=== PATIENT | female | born 1935 | race Caucasian/White ===

== ENCOUNTER 2017-08-13 14:30 | Inpatient (IN) | payer MEDICARE, OTHER ==
[~2017-08-13] VITALS: Ht 157.5 cm; Wt 79.7 kg
[~2017-08-13 14:30] MED LIST: AMLO2.5T2 PO; ESCI20TA29 PO; GABA-338 PO; LANS30CA37 PO; PRED2.5T4 PO
[2017-08-13 15:59] LABS: BASOPHILS % (AUTO) 0.3 % (0-1); EOSINOPHILS # (AUTO) 0.3 X10'3 (0-0.9); LYMPHOCYTES # (AUTO) 0.9 X10'3 (1.1-4.8); LYMPHOCYTES % (AUTO) 12.6 % (21-51); MEAN CORPUSCULAR HEMOGLOBIN 30.1 PG (27.0-31.0); MEAN CORPUSCULAR HGB CONC 33.7 % (33.0-36.5); MEAN CORPUSCULAR VOLUME 89.4 FL (78-98); MEAN PLATELET VOLUME 7.6 FL (7.4-10.4); MONOCYTES # (AUTO) 0.5 X10'3 (0-0.9); MONOCYTES % (AUTO) 7.3 % (2-12); NEUTROPHILS # (AUTO) 5.6 X10'3 (1.8-7.7); NEUTROPHILS % (AUTO) 75.8 % (42-75); PRE OP HEMOGLOBIN 14.5 g/dL (12.0-16.0); PRE OP PLATELET COUNT 274 X10'3 (140-440); RED BLOOD COUNT 4.81 X10'6 (4.20-5.60); RED CELL DISTRIBUTION WIDTH 14.1 % (11.5-14.5)
[2017-08-13] MEDS ORDERED: TERB250T4 (16:05)
[2017-08-13] MEDS ORDERED: FENT-91 TP (16:05)
[2017-08-13] MEDS ORDERED: OXYC10TA47 PO (16:05)
[2017-08-13] MEDS ORDERED: ONDA8TAB13 PO (16:05)
[2017-08-13] MEDS ORDERED: DIPH25CA83 PO (16:05)
[2017-08-13] MEDS ORDERED: MONT10TA24 PO (16:05)
[2017-08-13] MEDS ORDERED: PRAM0.5T12 PO (16:05)
[2017-08-13] MEDS ORDERED: MAGN500C16 PO (16:05)
[2017-08-13] MEDS ORDERED: LORA10TA7 PO (16:05)
[2017-08-13] MEDS ORDERED: HYDR-3972 PO (16:05)
[2017-08-13] MEDS ORDERED: FERR325T28 PO (16:05)
[2017-08-13] MEDS ORDERED: CHOL10002 PO (16:07)
[2017-08-13] MEDS ORDERED: ASCO500C15 PO (16:07)
[2017-08-13] MEDS ORDERED: LEVO75TA PO (16:14)
[2017-08-13 16:15] LABS: ALBUMIN 3.1 G/DL (3.4-5.0); ALBUMIN/GLOBULIN RATIO 0.8 (1.1-1.5); ALKALINE PHOSPHATASE 103 IU/L (46-116); BLOOD UREA NITROGEN 19 MG/DL (7-18); BUN/CREATININE RATIO 16.5 (6.6-38.0); CHLORIDE 100 MMOL/L (99-107); CREATININE 1.15 MG/DL (0.40-0.90); PRE OP ALT 26 U/L (30-65); PRE OP ANION GAP 5 (8-16); PRE OP AST 23 U/L (10-37); PRE OP BILIRUB, TOTAL 0.4 MG/DL (0.0-1.0); PRE OP GLUCOSE 106 MG/DL (70-104); PRE OP POTASSIUM 4.3 MMOL/L (3.4-5.1); PRE OP SODIUM 135 MMOL/L (135-145); TOTAL CARBON DIOXIDE 30.3 MMOL/L (24-32); TOTAL PROTEIN 7.2 G/DL (6.4-8.2); eGFR 45 ML/MIN
[2017-08-13 16:18] LABS: PRE OP INR 0.9 INR; PRE OP PROTIME 9.8 SECONDS (9.0-12.0)
[2017-08-20] MEDS ORDERED: LIDO35.4 TOP (13:12)
[2017-08-21] VITALS (28 sets, daily range): BP systolic 98–144; BP diastolic 47–89
[2017-08-21] MEDS ORDERED: ringers solution, lacted 1,000 ML IV SCH ×2 (05:00→08:42)
[2017-08-21] MEDS ORDERED: tranexamic acid inj. 1,000 MG in normal saline 100ml IV soln 90 ML IV ONE (05:30)
[2017-08-21] MEDS ORDERED: vancomycin inj 1,500 MG in normal saline 300ml IV soln IV ONE (05:30)
[2017-08-21] MEDS ORDERED: famotidine 20mg tablet PO ONE (05:30)
[2017-08-21] MEDS ORDERED: ceFAZolin inj. 2,000 MG in dextrose 5%-water 100 ML IV ONE (05:30)
[2017-08-21] MEDS ORDERED: LIDOcaine 1% (10mg/ml) 2ml vial ONE (05:54)
[2017-08-21] MEDS ORDERED: AMLO2.5T2 PO (06:12)
[2017-08-21] MEDS ORDERED: oxyCODONE IR 5mg (immed. release) tablet PO ONE (06:40)
[2017-08-21] MEDS ORDERED: ceFAZolin 1000mg inj ONE (06:43)
[2017-08-21] MEDS ORDERED: Thrombin (Bovine) 5,000 unit vial TP ONE ×2 (06:44→10:17)
[2017-08-21] MEDS ORDERED: BUPIVAcaine/PF 2.5 mg/ml (0.25%) 30ml vial ONE (06:44)
[2017-08-21] MEDS ORDERED: gelatin sponge, absorbable (Gelfoam 100) sponge TP ONE (06:44)
[2017-08-21] MEDS ORDERED: midazolam 2 mg/2 ml injection ONE (06:54)
[2017-08-21] MEDS ORDERED: fentaNYL /PF 50mcg/ml 5ml ampule ONE (06:56)
[2017-08-21] MEDS ORDERED: propofol inj 20 ML IV ONE (06:57)
[2017-08-21] MEDS ORDERED: LIDOcaine 2% (20mg/ml) 5ml vial ONE (06:57)
[2017-08-21] MEDS ORDERED: rocuronium 10mg/ml inj IV ONE (06:59)
[2017-08-21] MEDS ORDERED: methylPREDNISolone sod succ 125mg/2ml vial ONE (07:25)
[2017-08-21] MEDS ORDERED: sevoflurane 250ml liquid IH ONE (07:25)
[2017-08-21] MEDS ORDERED: ondansetron/PF 4mg/2ml inj IV PRN ×2 (08:45→12:50)
[2017-08-21] MEDS ORDERED: HYDROmorphone inj. 0.5 MG/0.5 ML DISP.SYRIN IV PRN (08:45)
[2017-08-21] MEDS ORDERED: proCHLORperazine 10 MG/2 ml inj IV PRN (08:45)
[2017-08-21] MEDS ORDERED: fentaNYL/PF 50MCG/1 ML 2ML syringe IV PRN (08:45)
[2017-08-21] MEDS ORDERED: hydrALAZINE 20mg/ml inj. IV PRN (08:45)
[2017-08-21] MEDS ORDERED: HYDROmorphone 1 mg/ml syringe ONE (09:04)
[2017-08-21] MEDS ORDERED: ePHEDrine 50MG/ML INJ. ONE (10:29)
[2017-08-21] MEDS ORDERED: fentaNYL/PF 50MCG/1 ML 2ML syringe ONE (11:27)
[2017-08-21 12:00] LABS: ISTAT CREATININE 1.1 mg/dL (0.6-1.1); ISTAT HGB 10.5 g/dl (12.0-16.0); ISTAT IONIZED CALCIUM 1.09 mmol/L (1.03-1.32); ISTAT K 5.9 mmol/L (3.5-5.1); POC BUN/CREATININE RATIO 19.1 (6.6-38.0)
[2017-08-21] MEDS: fentaNYL/PF 50MCG/1 ML 2ML syringe IV PRN ×2 (12:30→12:50)
[2017-08-21] MEDS ORDERED: potassium cl 20mEq in 1/2 NS 1,000 ML IV SCH (12:50)
[2017-08-21] MEDS ORDERED: HYDROcodone/acetaminophen 10/325mg tab PO PRN (12:50)
[2017-08-21] MEDS ORDERED: tranexamic acid inj. 800 MG in normal saline 100ml IV soln 92 ML IV ONE (14:00)
[2017-08-21] MEDS: HYDROcodone/acetaminophen 10/325mg tab PO PRN ×2 (15:20→19:35)
[2017-08-21] MEDS: ceFAZolin 1GM/D5W- ADD-VANTAGE 50 ML IV SCH (20:44)
[2017-08-21] MEDS: MORPHINE 2MG in 2ml NS syringe IV PRN (20:49)
[2017-08-21] MEDS ORDERED: gabapentin 300mg capsule PO SCH (21:00)
[2017-08-21] MEDS ORDERED: amLODIPine 2.5mg tablet PO SCH (21:00)
[2017-08-21] MEDS ORDERED: pramipexole 0.25mg tablet PO SCH (21:00)
[2017-08-22] MEDS: MORPHINE 2MG in 2ml NS syringe IV PRN (01:15)
[2017-08-22 02:00] VITALS: BP 103/58
[2017-08-22 05:00] VITALS: BP 111/63
[2017-08-22] MEDS: ceFAZolin 1GM/D5W- ADD-VANTAGE 50 ML IV SCH (05:08)
[2017-08-22] MEDS: HYDROcodone/acetaminophen 10/325mg tab PO PRN ×2 (05:10→10:45)
[2017-08-22 06:34] LABS: BASOPHILS % (AUTO) 0.1 % (0-1); EOSINOPHILS # (AUTO) 0.3 X10'3 (0-0.9); EOSINOPHILS % (AUTO) 2.9 % (0-6); HEMATOCRIT 29.3 % (35.0-45.0); HEMOGLOBIN 9.7 g/dl (12.0-16.0); LYMPHOCYTES % (AUTO) 9.1 % (21-51); MEAN CORPUSCULAR HEMOGLOBIN 28.1 PG (27.0-31.0); MEAN CORPUSCULAR HGB CONC 33.2 % (33.0-36.5); MEAN CORPUSCULAR VOLUME 84.7 FL (78-98); MEAN PLATELET VOLUME 7.9 FL (7.4-10.4); MONOCYTES # (AUTO) 0.8 X10'3 (0-0.9); MONOCYTES % (AUTO) 7.2 % (2-12); NEUTROPHILS # (AUTO) 8.5 X10'3 (1.8-7.7); NEUTROPHILS % (AUTO) 80.7 % (42-75); PLATELET COUNT 157 X10'3 (140-440); RED BLOOD COUNT 3.46 X10'6 (4.20-5.60); RED CELL DISTRIBUTION WIDTH 19.3 % (11.5-14.5); WHITE BLOOD COUNT 10.6 X10'3 (4.5-11.0)
[2017-08-22] MEDS ORDERED: pantoprazole 40mg Tablet.DR PO SCH (07:30)
[2017-08-22] MEDS ORDERED: montelukast 10mg tablet PO SCH (08:00)
[2017-08-22] MEDS ORDERED: loratadine 10mg tablet PO SCH (08:00)
[2017-08-22] MEDS ORDERED: fentaNYL 50MCG/HOUR patch.TD72 TD SCH (08:00)
[2017-08-22] MEDS ORDERED: predniSONE 5mg tablet PO SCH (08:00)
[2017-08-22] MEDS ORDERED: levoTHYROXINE 75mcg tablet PO SCH (08:00)
[2017-08-22] MEDS ORDERED: citalopram 20mg tablet PO SCH (08:00)
[2017-08-22] MEDS ORDERED: OXYC-150 PO (08:04)
[2017-08-22 10:00] VITALS: BP 120/57
== END 2017-08-22 11:05 | disposition home or self-care (01) | DRG 483 ==
LOC: EDSTATUS 14:30 → PAS IN 08-21 05:43 → EDSTATUS 08-21 07:30 → ORTHO 4S 08-21 12:43
PROVIDERS: ADMIT Orthopaedic Surgery; ATTEND Orthopaedic Surgery
PROC: 30233N1 Transfusion of Nonautologous Red Blood Cells into Peripheral Vein, Percutaneous Approach (ICD-10-PCS; 2017-08-21)
PROC: 0RRJ00Z Replacement of Right Shoulder Joint with Reverse Ball and Socket Synthetic Substitute, Open Approach (ICD-10-PCS; principal; 2017-08-21 07:25)
DX: M19.011 Primary osteoarthritis, right shoulder (principal); D62 Acute posthemorrhagic anemia; M32.9 Systemic lupus erythematosus, unspecified; M75.101 Unspecified rotator cuff tear or rupture of right shoulder, not specified as traumatic; E03.9 Hypothyroidism, unspecified; I10 Essential (primary) hypertension; K21.9 Gastro-esophageal reflux disease without esophagitis; F32.9 Major depressive disorder, single episode, unspecified; G89.29 Other chronic pain; Z96.651 Presence of right artificial knee joint; Z90.49 Acquired absence of other specified parts of digestive tract; Z88.5 Allergy status to narcotic agent; Z79.899 Other long term (current) drug therapy; Z85.528 Personal history of other malignant neoplasm of kidney
CPT/HCPCS: 36415; 80047; 80053; 85025; 85610; 85730; 86870; 86885; 86900; 86901; 86902; 86905; 86906; 86922; 87070; 93005; 97116; 97162; 97530; A4565; A6223; A6449; A7000; C1758; J0690; J1170; J2001; J2250; J2274; J2405; J2704; J2930; J3010; J3370; J3490; J7030; J7060; J7120; J7512; P9016

== ENCOUNTER 2018-04-15 11:56 | Inpatient (IN) | payer MEDICARE, OTHER ==
[2018-04-14 23:56] VITALS: BP 83/37
[~2018-04-15] VITALS: Ht 165.1 cm; Wt 87.6 kg
[~2018-04-15 11:56] MED LIST changes: +FENT1PAT10 TP; +LEVO75TA PO; +LORA10TA7 PO; +MONT10TA24 PO; +OXYC-150 PO; +PRAM0.5T12 PO
[2018-04-15 12:53] LABS: BASOPHILS % (AUTO) 0 % (0-1); EOSINOPHILS % (AUTO) 0.3 % (0-6); HEMATOCRIT 48.2 % (35.0-45.0); HEMOGLOBIN 15.9 g/dl (12.0-16.0); LYMPHOCYTES # (AUTO) 0.2 X10'3 (1.1-4.8); LYMPHOCYTES % (AUTO) 1.2 % (21-51); MEAN CORPUSCULAR HEMOGLOBIN 29.3 PG (27.0-31.0); MEAN CORPUSCULAR VOLUME 88.8 FL (78-98); MEAN PLATELET VOLUME 8.5 FL (7.4-10.4); MONOCYTES # (AUTO) 0.2 X10'3 (0-0.9); MONOCYTES % (AUTO) 1.5 % (2-12); NEUTROPHILS # (AUTO) 13.7 X10'3 (1.8-7.7); PLATELET COUNT 107 X10'3 (140-440); RED BLOOD COUNT 5.43 X10'6 (4.20-5.60); RED CELL DISTRIBUTION WIDTH 14.2 % (11.5-14.5); WHITE BLOOD COUNT 14.1 X10'3 (4.5-11.0)
[2018-04-15] MEDS ORDERED: ondansetron/PF 4mg/2ml inj IV ONE (13:05)
[2018-04-15] MEDS ORDERED: normal saline 1000ML IV soln IVB ONE (13:05)
[2018-04-15 13:13] LABS: INR 1.2 INR
[2018-04-15 13:15] LABS: ALANINE AMINOTRANSFERASE 49 U/L (12-78); ALBUMIN 2.4 G/DL (3.4-5.0); ALBUMIN/GLOBULIN RATIO 0.6 (1.1-1.5); ALKALINE PHOSPHATASE 166 IU/L (46-116); ANION GAP 11 (8-16); ASPARTATE AMINO TRANSFERASE 44 U/L (10-37); BILIRUBIN,TOTAL 1.3 MG/DL (0.1-1.0); BLOOD UREA NITROGEN 26 MG/DL (7-18); BUN/CREATININE RATIO 14.6 (6.6-38.0); CALCIUM 8.3 MG/DL (8.5-10.1); CHLORIDE 89 MMOL/L (99-107); CREATININE 1.78 MG/DL (0.40-0.90); GLUCOSE 213 MG/DL (70-104); POTASSIUM 3.5 MMOL/L (3.5-5.1); SODIUM 124 MMOL/L (135-145); TOTAL CARBON DIOXIDE 23.8 MMOL/L (24-32); TOTAL PROTEIN 6.6 G/DL (6.4-8.2); eGFR 27 ML/MIN
[2018-04-15 13:33] LABS: PLATELET ESTIMATE DECREASED; TOTAL CELLS COUNTED 100
[2018-04-15] MEDS ORDERED: proCHLORperazine 10 MG/2 ml inj IV ONE (14:20)
[2018-04-15] MEDS ORDERED: morphine 4 MG/ML inj SYRINge IV ONE (14:20)
[2018-04-15] MEDS ORDERED: pantoprazole IV 80 MG in normal saline 100ml IV soln 100 ML IV ONE ×4 (14:30)
[2018-04-15] MEDS ORDERED: pantoprazole 40 MG vial IV ONE (14:33)
[2018-04-15] MEDS ORDERED: metoclopramide 5 mg/ml inj IV PRN (14:45)
[2018-04-15] MEDS ORDERED: mag hydrox/Alum hydrox/simeth 30ml oral suspension PO PRN (14:45)
[2018-04-15] MEDS ORDERED: magnesium hydroxide 30ml (MOM) UD suspension PO PRN (14:45)
[2018-04-15] MEDS ORDERED: morphine 2 MG/ML inj. syringe IV PRN ×2 (14:45)
[2018-04-15] MEDS ORDERED: ondansetron/PF 4mg/2ml inj IV PRN (14:45)
[2018-04-15] MEDS ORDERED: ONDA8TAB13 PO (14:51)
[2018-04-15] MEDS ORDERED: AMLO10TA PO (14:51)
[2018-04-15] MEDS ORDERED: HYDR-3972 PO (14:51)
[2018-04-15] MEDS ORDERED: LANS30CA56 PO (14:51)
[2018-04-15] MEDS ORDERED: MAGN500T2 PO (14:51)
[2018-04-15] MEDS ORDERED: OXYC10TA47 PO (14:51)
[2018-04-15] MEDS ORDERED: DIPH25CA46 PO (14:51)
[2018-04-15] MEDS ORDERED: TERB250T4 PO (14:51)
[2018-04-15] MEDS ORDERED: HYDR200T84 PO (14:51)
[2018-04-15] MEDS ORDERED: DOCU-267 PO (14:51)
[2018-04-15] MEDS ORDERED: FERR325T29 PO (14:51)
[2018-04-15] MEDS ORDERED: PRE5T PO (14:51)
[2018-04-15] MEDS: normal saline 1000ml 1,000 ML IV SCH ×2 (15:40→21:09)
[2018-04-15 16:14] LABS: GASTRIC OCCULT BLOOD POSITIVE (Neg)
[2018-04-15 19:15] VITALS: BP 121/65
[2018-04-15] MEDS ORDERED: normal saline 1000ml 1,000 ML IV ONE (19:40)
[2018-04-15 20:35] LABS: CLARITY,URINE SLIGHTLY CLOUDY (Clear); COLOR,URINE YELLOW (Yellow); GLUCOSE, URINE NEGATIVE (Neg); KETONES,URINE NEGATIVE (Neg); LEUKOCYTE ESTERASE ,URINE NEGATIVE (Neg); NITRITES, URINE NEGATIVE (Neg); OCCULT BLOOD,URINE MODERATE (Neg); PH,URINE 5.5 (4.8-8.0); PROTEIN,URINE 100 mg/dl (Neg)
[2018-04-15 20:47] LABS: SQUAMOUS EPITHELIAL CELL,UR FEW /LPF (FEW)
[2018-04-15 20:48] LABS: AMORPHOUS URATES 3+
[2018-04-15 20:49] LABS: BACTERIA,URINE 1+ /HPF (Neg); CELLULAR CAST 0-4 /LPF (NEGATIVE)
[2018-04-15 20:55] LABS: UA COLLECTION TYPE STRAIGHT CATH
[2018-04-15] MEDS: acetaminophen 325mg tablet PO PRN ×2 (21:09→21:22)
[2018-04-15 22:14] VITALS: BP 114/55
[2018-04-15 23:03] VITALS: BP 79/35
[2018-04-15 23:05] VITALS: BP 78/39
[2018-04-15] MEDS: piperacillin/tazo 3.375gm/50ml 50 ML IV SCH (23:22)
[2018-04-15 23:28] VITALS: BP 90/49
[2018-04-15 23:31] LABS: ABG BASE EXCESS -3.1 mmol/L (-2.0-3.0); ABG HCO3 17.6 mmol/L (22.0-26.0); ABG OXYGEN SATURATION 94.4 % (95-98); ABG PCO2 (T) 23.1 mmHg (32.0-45.0); ABG PH (T) 7.503 (7.350-7.450); ALLEN'S TEST Positive; FCOHb 0.7 % (0.5-1.5); FLOW 2 L/min; FO2Hb 93.7 % (94-100); PATIENT TEMPERATURE 37.6; RESPIRATORY RATE (OBSERVED) 25 b/min; TOTAL HEMOGLOBIN 15.1 G/dl (12.0-16.0)
[2018-04-15 23:35] LABS: BASOPHILS % (AUTO) 0 % (0-1); EOSINOPHILS # (AUTO) 0.1 X10'3 (0-0.9); EOSINOPHILS % (AUTO) 0.5 % (0-6); HEMATOCRIT 44.4 % (35.0-45.0); HEMOGLOBIN 14.7 g/dl (12.0-16.0); LYMPHOCYTES # (AUTO) 0.1 X10'3 (1.1-4.8); LYMPHOCYTES % (AUTO) 0.9 % (21-51); MEAN CORPUSCULAR HEMOGLOBIN 29.2 PG (27.0-31.0); MEAN CORPUSCULAR HGB CONC 33.1 % (33.0-36.5); MEAN CORPUSCULAR VOLUME 88.2 FL (78-98); MONOCYTES # (AUTO) 0.4 X10'3 (0-0.9); MONOCYTES % (AUTO) 2.9 % (2-12); NEUTROPHILS # (AUTO) 13.4 X10'3 (1.8-7.7); NEUTROPHILS % (AUTO) 95.7 % (42-75); PLATELET COUNT 77 X10'3 (140-440); RED BLOOD COUNT 5.04 X10'6 (4.20-5.60); RED CELL DISTRIBUTION WIDTH 14.2 % (11.5-14.5)
[2018-04-15 23:39] VITALS: BP 103/50
[2018-04-15 23:50] LABS: ALANINE AMINOTRANSFERASE 43 U/L (12-78); ALBUMIN 1.9 G/DL (3.4-5.0); ALBUMIN/GLOBULIN RATIO 0.5 (1.1-1.5); ALKALINE PHOSPHATASE 162 IU/L (46-116); ANION GAP 16 (8-16); ASPARTATE AMINO TRANSFERASE 54 U/L (10-37); BILIRUBIN,TOTAL 1.6 MG/DL (0.1-1.0); BLOOD UREA NITROGEN 31 MG/DL (7-18); BUN/CREATININE RATIO 13.7 (6.6-38.0); CALCIUM 7.4 MG/DL (8.5-10.1); CHLORIDE 95 MMOL/L (99-107); CREATININE 2.27 MG/DL (0.40-0.90); GLUCOSE 96 MG/DL (70-104); MAGNESIUM 1.2 MG/DL (1.5-2.4); SODIUM 131 MMOL/L (135-145); TOTAL CARBON DIOXIDE 20.1 MMOL/L (24-32); TOTAL PROTEIN 5.5 G/DL (6.4-8.2); eGFR 21 ML/MIN
[2018-04-15 23:56] LABS: POTASSIUM 2.8 MMOL/L (3.5-5.1)
[2018-04-16] VITALS (25 sets, daily range): BP systolic 76–140; BP diastolic 40–68
[2018-04-16 00:11] LABS: TROPONIN I 0.16 NG/ML (0.0-0.05)
[2018-04-16 00:26] LABS: TOTAL CELLS COUNTED 100
[2018-04-16 00:28] LABS: BURR CELLS 2+; LARGE PLATELETS FEW; PLATELET ESTIMATE DECREASED; TOXIC VACUOLATION 2+
[2018-04-16] MEDS ORDERED: potassium Cl 40MEQ/NS 500ml 500 ML IV PRN (00:35)
[2018-04-16] MEDS: potassium Cl 40MEQ/NS 500ml 500 ML IV PRN ×2 (01:00→05:21)
[2018-04-16] MEDS: pantoprazole 40MG/NS 100ML BAG 100 ML IV SCH ×6 (01:00→21:24)
[2018-04-16] MEDS: magnesium 4gm in 100ml NS 100 ML IV PRN (01:46)
[2018-04-16] MEDS ORDERED: calcium chloride inj. 1,000 MG in normal saline 100ml IV soln 90 ML IV ONE (03:30)
[2018-04-16] MEDS ORDERED: ASPI81TA52 PO (03:50)
[2018-04-16] MEDS ORDERED: PRAM0.5T3 PO (03:50)
[2018-04-16] MEDS ORDERED: LORA10TA7 PO (03:50)
[2018-04-16] MEDS ORDERED: CHOL400T57 PO (03:50)
[2018-04-16 06:19] LABS: BASOPHILS % (AUTO) 0 % (0-1); EOSINOPHILS # (AUTO) 0.1 X10'3 (0-0.9); EOSINOPHILS % (AUTO) 0.7 % (0-6); HEMATOCRIT 46.2 % (35.0-45.0); HEMOGLOBIN 15.4 g/dl (12.0-16.0); LYMPHOCYTES # (AUTO) 0.1 X10'3 (1.1-4.8); LYMPHOCYTES % (AUTO) 0.7 % (21-51); MEAN CORPUSCULAR HEMOGLOBIN 29.6 PG (27.0-31.0); MEAN CORPUSCULAR HGB CONC 33.3 % (33.0-36.5); MEAN CORPUSCULAR VOLUME 88.8 FL (78-98); MEAN PLATELET VOLUME 9.5 FL (7.4-10.4); MONOCYTES # (AUTO) 0.7 X10'3 (0-0.9); NEUTROPHILS # (AUTO) 13.8 X10'3 (1.8-7.7); NEUTROPHILS % (AUTO) 93.6 % (42-75); PLATELET COUNT 51 X10'3 (140-440); RED BLOOD COUNT 5.21 X10'6 (4.20-5.60); RED CELL DISTRIBUTION WIDTH 14.1 % (11.5-14.5); WHITE BLOOD COUNT 14.7 X10'3 (4.5-11.0)
[2018-04-16 07:03] LABS: TOTAL CELLS COUNTED 100
[2018-04-16 07:04] LABS: BURR CELLS 2+; LARGE PLATELETS FEW; PLATELET ESTIMATE DECREASED; TOXIC VACUOLATION 2+
[2018-04-16] MEDS: K and/or MAG REPLACEMENT MC SCH (08:00)
[2018-04-16] MEDS: piperacillin/tazo 3.375gm/50ml 50 ML IV SCH ×2 (08:02→13:41)
[2018-04-16] MEDS: HYDROcodone/acetaminophen 5mg/325mg tablet PO PRN ×3 (08:03→21:44)
[2018-04-16 08:38] LABS: ALANINE AMINOTRANSFERASE 41 U/L (12-78); ALBUMIN 1.6 G/DL (3.4-5.0); ALBUMIN/GLOBULIN RATIO 0.5 (1.1-1.5); ALKALINE PHOSPHATASE 144 IU/L (46-116); ANION GAP 13 (8-16); ASPARTATE AMINO TRANSFERASE 48 U/L (10-37); BILIRUBIN,TOTAL 1.6 MG/DL (0.1-1.0); BLOOD UREA NITROGEN 32 MG/DL (7-18); CHLORIDE 102 MMOL/L (99-107); CREATININE 2.28 MG/DL (0.40-0.90); GLUCOSE 90 MG/DL (70-104); POTASSIUM 4.3 MMOL/L (3.5-5.1); SODIUM 133 MMOL/L (135-145); TOTAL CARBON DIOXIDE 18.4 MMOL/L (24-32); TOTAL PROTEIN 4.9 G/DL (6.4-8.2); TROPONIN I 0.16 NG/ML (0.0-0.05); eGFR 21 ML/MIN
[2018-04-16 11:01] LABS: ABG HCO3 17.3 mmol/L (22.0-26.0); ABG OXYGEN SATURATION 92.2 % (95-98); ABG PCO2 (T) 29.5 mmHg (32.0-45.0); ABG PH (T) 7.389 (7.350-7.450); ABG PO2 (T) 69.2 mmHg (83-108); ALLEN'S TEST Positive; FCOHb 0.5 % (0.5-1.5); FMetHb 0.3 % (0.3-1.12); FO2Hb 91.5 % (94-100); PATIENT TEMPERATURE 37.8
[2018-04-16] MEDS: normal saline 1000ml 1,000 ML IV SCH (11:06)
[2018-04-16 11:36] LABS: MAGNESIUM 2.7 MG/DL (1.5-2.4)
[2018-04-16] MEDS: acetaminophen 325mg tablet PO PRN (16:08)
[2018-04-16] MEDS ORDERED: amiodarone 150mg/dext, iso-os 100 ML IV ONE ×2 (17:25)
[2018-04-16] MEDS: amiodarone/D5 360MG/200ML BAG 200 ML IV SCH ×2 (17:38→23:40)
[2018-04-16 18:18] LABS: MAGNESIUM 2.4 MG/DL (1.5-2.4); PHOSPHORUS 2.9 MG/DL (2.3-4.5)
[2018-04-16 18:19] LABS: POTASSIUM 4.1 MMOL/L (3.5-5.1)
[2018-04-16] MEDS: vancomycin inj 1,250 MG in normal saline 250ml IV soln 250 ML IV SCH (19:53)
[2018-04-16] MEDS ORDERED: vancomycin/NS 1 GM ADD-VANTAGE 250 ML IV SCH (20:00)
[2018-04-16 20:31] LABS: BASOPHILS % (AUTO) 0 % (0-1); EOSINOPHILS # (AUTO) 0.2 X10'3 (0-0.9); EOSINOPHILS % (AUTO) 1.1 % (0-6); HEMATOCRIT 41.1 % (35.0-45.0); HEMOGLOBIN 13.7 g/dl (12.0-16.0); LYMPHOCYTES # (AUTO) 0.2 X10'3 (1.1-4.8); LYMPHOCYTES % (AUTO) 0.9 % (21-51); MEAN CORPUSCULAR HEMOGLOBIN 29.5 PG (27.0-31.0); MEAN CORPUSCULAR HGB CONC 33.4 % (33.0-36.5); MEAN CORPUSCULAR VOLUME 88.3 FL (78-98); MEAN PLATELET VOLUME 10.1 FL (7.4-10.4); MONOCYTES # (AUTO) 0.3 X10'3 (0-0.9); MONOCYTES % (AUTO) 1.9 % (2-12); NEUTROPHILS # (AUTO) 16.5 X10'3 (1.8-7.7); NEUTROPHILS % (AUTO) 96.1 % (42-75); PLATELET COUNT 73 X10'3 (140-440); RED BLOOD COUNT 4.65 X10'6 (4.20-5.60); WHITE BLOOD COUNT 17.2 X10'3 (4.5-11.0)
[2018-04-16 20:47] LABS: ALANINE AMINOTRANSFERASE 33 U/L (12-78); ALBUMIN 1.5 G/DL (3.4-5.0); ALBUMIN/GLOBULIN RATIO 0.4 (1.1-1.5); ALKALINE PHOSPHATASE 153 IU/L (46-116); ANION GAP 13 (8-16); ASPARTATE AMINO TRANSFERASE 33 U/L (10-37); BILIRUBIN,TOTAL 1.6 MG/DL (0.1-1.0); BLOOD UREA NITROGEN 34 MG/DL (7-18); BUN/CREATININE RATIO 15.3 (6.6-38.0); CALCIUM 7.6 MG/DL (8.5-10.1); CHLORIDE 103 MMOL/L (99-107); CREATININE 2.22 MG/DL (0.40-0.90); GLUCOSE 83 MG/DL (70-104); POTASSIUM 3.9 MMOL/L (3.5-5.1); SODIUM 134 MMOL/L (135-145); TOTAL CARBON DIOXIDE 18.4 MMOL/L (24-32); TOTAL PROTEIN 4.9 G/DL (6.4-8.2); eGFR 21 ML/MIN
[2018-04-16] MEDS ORDERED: normal saline 500ml IV soln 500 ML IV ONE (21:00)
[2018-04-16 21:16] LABS: TROPONIN I 0.12 NG/ML (0.0-0.05)
[2018-04-16] MEDS: predniSONE 5mg tablet PO SCH (21:44)
[2018-04-16] MEDS ORDERED: normal saline 1000ml 1,000 ML IVB ONE (21:57)
[2018-04-16] MEDS ORDERED: normal saline 1000ml 1,000 ML IV ONE (22:00)
[2018-04-17] VITALS (24 sets, daily range): BP systolic 87–131; BP diastolic 45–81
[2018-04-17] MEDS: piperacillin/tazobactam inj. 2.25 GM in normal saline 50ml IV IV SCH ×4 (00:35→20:40)
[2018-04-17] MEDS: normal saline 1000ml 1,000 ML IV SCH ×4 (01:36→19:40)
[2018-04-17] MEDS: pantoprazole 40MG/NS 100ML BAG 100 ML IV SCH ×5 (04:00→20:41)
[2018-04-17 04:12] LABS: BASOPHILS # (AUTO) 0.2 X10'3 (0-0.2); BASOPHILS % (AUTO) 0.9 % (0-1); EOSINOPHILS # (AUTO) 0.1 X10'3 (0-0.9); EOSINOPHILS % (AUTO) 0.5 % (0-6); HEMATOCRIT 39.9 % (35.0-45.0); HEMOGLOBIN 13.2 g/dl (12.0-16.0); LYMPHOCYTES # (AUTO) 0.2 X10'3 (1.1-4.8); LYMPHOCYTES % (AUTO) 0.9 % (21-51); MEAN CORPUSCULAR HEMOGLOBIN 29.5 PG (27.0-31.0); MEAN CORPUSCULAR HGB CONC 33.2 % (33.0-36.5); MEAN PLATELET VOLUME 9.8 FL (7.4-10.4); MONOCYTES # (AUTO) 0.7 X10'3 (0-0.9); MONOCYTES % (AUTO) 3.3 % (2-12); NEUTROPHILS # (AUTO) 19.3 X10'3 (1.8-7.7); NEUTROPHILS % (AUTO) 94.4 % (42-75); PLATELET COUNT 65 X10'3 (140-440); RED BLOOD COUNT 4.49 X10'6 (4.20-5.60); RED CELL DISTRIBUTION WIDTH 15.1 % (11.5-14.5); WHITE BLOOD COUNT 20.5 X10'3 (4.5-11.0)
[2018-04-17 04:24] LABS: ALBUMIN 1.5 G/DL (3.4-5.0); ANION GAP 16 (8-16); BLOOD UREA NITROGEN 33 MG/DL (7-18); BUN/CREATININE RATIO 18.2 (6.6-38.0); CALCIUM 7.2 MG/DL (8.5-10.1); CHLORIDE 104 MMOL/L (99-107); CREATININE 1.81 MG/DL (0.40-0.90); GLUCOSE 96 MG/DL (70-104); SODIUM 135 MMOL/L (135-145); TOTAL CARBON DIOXIDE 15.1 MMOL/L (24-32); eGFR 27 ML/MIN
[2018-04-17] MEDS ORDERED: furosemide 20 MG/2 ML vial IV ONE (05:10)
[2018-04-17] MEDS: albuterol 2.5 MG/3 ML nebule NEB PRN ×4 (05:17→21:22)
[2018-04-17] MEDS: levoTHYROXINE 75mcg tablet PO SCH (07:22)
[2018-04-17] MEDS: hydroxychloroquine 200mg tablet PO SCH (07:23)
[2018-04-17] MEDS: HYDROcodone/acetaminophen 10/325mg tab PO PRN ×3 (07:53→22:40)
[2018-04-17] MEDS: K and/or MAG REPLACEMENT MC SCH (08:00)
[2018-04-17] MEDS ORDERED: gabapentin 300mg capsule PO SCH (08:00)
[2018-04-17] MEDS: amiodarone/D5 360MG/200ML BAG 200 ML IV SCH ×3 (15:12→23:43)
[2018-04-17] MEDS: vancomycin inj 1,250 MG in normal saline 250ml IV soln 250 ML IV SCH (22:40)
[2018-04-18] VITALS (22 sets, daily range): BP systolic 80–124; BP diastolic 46–99
[2018-04-18] MEDS: amiodarone/D5 360MG/200ML BAG 200 ML IV SCH ×5 (00:49→23:57)
[2018-04-18] MEDS ORDERED: diphenhydrAMINE 25mg capsule PO ONE ×2 (01:40)
[2018-04-18] MEDS: HYDROcodone/acetaminophen 10/325mg tab PO PRN ×4 (01:48→21:08)
[2018-04-18] MEDS: piperacillin/tazobactam inj. 2.25 GM in normal saline 50ml IV IV SCH ×4 (02:09→20:31)
[2018-04-18] MEDS: pantoprazole 40MG/NS 100ML BAG 100 ML IV SCH ×6 (05:41→23:58)
[2018-04-18 06:47] LABS: ALBUMIN 1.4 G/DL (3.4-5.0); ANION GAP 15 (8-16); BLOOD UREA NITROGEN 36 MG/DL (7-18); BUN/CREATININE RATIO 19.1 (6.6-38.0); CHLORIDE 102 MMOL/L (99-107); CREATININE 1.88 MG/DL (0.40-0.90); GLUCOSE 102 MG/DL (70-104); SODIUM 132 MMOL/L (135-145); TOTAL CARBON DIOXIDE 15.4 MMOL/L (24-32); eGFR 26 ML/MIN
[2018-04-18 06:54] LABS: POTASSIUM 3.2 MMOL/L (3.5-5.1)
[2018-04-18] MEDS: normal saline 1000ml 1,000 ML IV SCH (07:08)
[2018-04-18] MEDS: K and/or MAG REPLACEMENT MC SCH (08:00)
[2018-04-18] MEDS: ferrous sulfate 325mg tablet PO SCH (08:27)
[2018-04-18] MEDS: gabapentin 300mg capsule PO SCH (08:28)
[2018-04-18] MEDS: levoTHYROXINE 75mcg tablet PO SCH (08:31)
[2018-04-18] MEDS: hydroxychloroquine 200mg tablet PO SCH (08:35)
[2018-04-18 09:01] LABS: BASOPHILS # (AUTO) 0.2 X10'3 (0-0.2); BASOPHILS % (AUTO) 0.7 % (0-1); EOSINOPHILS # (AUTO) 0.4 X10'3 (0-0.9); EOSINOPHILS % (AUTO) 2.1 % (0-6); HEMATOCRIT 35.7 % (35.0-45.0); HEMOGLOBIN 11.7 g/dl (12.0-16.0); LYMPHOCYTES # (AUTO) 0.4 X10'3 (1.1-4.8); LYMPHOCYTES % (AUTO) 1.9 % (21-51); MEAN CORPUSCULAR HEMOGLOBIN 29.2 PG (27.0-31.0); MEAN CORPUSCULAR HGB CONC 32.9 % (33.0-36.5); MEAN CORPUSCULAR VOLUME 88.7 FL (78-98); MEAN PLATELET VOLUME 10.2 FL (7.4-10.4); MONOCYTES # (AUTO) 0.3 X10'3 (0-0.9); MONOCYTES % (AUTO) 1.6 % (2-12); NEUTROPHILS # (AUTO) 19.6 X10'3 (1.8-7.7); NEUTROPHILS % (AUTO) 93.7 % (42-75); PLATELET COUNT 67 X10'3 (140-440); RED BLOOD COUNT 4.02 X10'6 (4.20-5.60); RED CELL DISTRIBUTION WIDTH 16.1 % (11.5-14.5); WHITE BLOOD COUNT 20.9 X10'3 (4.5-11.0)
[2018-04-18] MEDS: citalopram 20mg tablet PO SCH (09:24)
[2018-04-18 09:26] LABS: ANISOCYTOSIS 1+; PLATELET ESTIMATE DECREASED; TOTAL CELLS COUNTED 100
[2018-04-18 09:27] LABS: BURR CELLS 2+; LARGE PLATELETS FEW; TOXIC GRANULATION 1+; TOXIC VACUOLATION 1+
[2018-04-18 10:23] LABS: MAGNESIUM 1.9 MG/DL (1.5-2.4)
[2018-04-18] MEDS ORDERED: furosemide 10 MG/1 ML 10ml inj IV ONE (10:40)
[2018-04-18] MEDS ORDERED: potassium phosphate inj 30 MMOL in normal saline 500ml IV soln 490 ML IV ONE (10:40)
[2018-04-18 11:15] LABS: ABG BASE EXCESS -10.2 mmol/L (-2.0-3.0); ABG HCO3 15.1 mmol/L (22.0-26.0); ABG OXYGEN SATURATION 97.7 % (95-98); ABG PCO2 (T) 31.5 mmHg (32.0-45.0); ABG PH (T) 7.297 (7.350-7.450); ABG PO2 (T) 109.5 mmHg (83-108); ALLEN'S TEST Positive; FCOHb 0.3 % (0.5-1.5); FLOW 4 L/min; FMetHb 0.3 % (0.3-1.12); FO2Hb 97.1 % (94-100); PATIENT TEMPERATURE 36.9; TOTAL HEMOGLOBIN 12.5 G/dl (12.0-16.0)
[2018-04-18 12:00] LABS: OXYGEN SATURATION (MIXED VEN) 72.6 % (60-80); PO2 MIXED VENOUS (TEMP COR) 36.8 mmHg (35-46)
[2018-04-18] MEDS: spironolactone 50 MG tablet PO SCH ×2 (13:21→21:07)
[2018-04-18] MEDS: furosemide 10 MG/1 ML 10ml inj IV SCH ×2 (16:29→22:52)
[2018-04-18] MEDS ORDERED: magnesium 2GM in 50ml NS 50 ML IV STA (16:42)
[2018-04-18] MEDS ORDERED: VANCOMYCIN LEVEL IV NR (19:30)
[2018-04-18] MEDS: vancomycin inj 1,250 MG in normal saline 250ml IV soln 250 ML IV SCH (20:31)
[2018-04-18] MEDS: predniSONE 5mg tablet PO SCH (21:07)
[2018-04-18] MEDS: diphenhydrAMINE 25mg capsule PO SCH (21:08)
[2018-04-18] MEDS: albuterol 2.5 MG/3 ML nebule NEB PRN (22:37)
[2018-04-18] MEDS ORDERED: NORepinephrine 8mg/ 250ml NS 250 ML IV PRN (22:55)
[2018-04-19] VITALS (23 sets, daily range): BP systolic 80–132; BP diastolic 45–80
[2018-04-19] MEDS ORDERED: methylPREDNISolone sod succ 125mg/2ml vial IV ONE (00:15)
[2018-04-19 02:22] LABS: BASOPHILS % (AUTO) 0 % (0-1); EOSINOPHILS # (AUTO) 0.2 X10'3 (0-0.9); EOSINOPHILS % (AUTO) 0.9 % (0-6); HEMATOCRIT 38.5 % (35.0-45.0); HEMOGLOBIN 12.6 g/dl (12.0-16.0); LYMPHOCYTES # (AUTO) 0.7 X10'3 (1.1-4.8); MEAN CORPUSCULAR HEMOGLOBIN 29.3 PG (27.0-31.0); MEAN CORPUSCULAR HGB CONC 32.7 % (33.0-36.5); MEAN CORPUSCULAR VOLUME 89.5 FL (78-98); MEAN PLATELET VOLUME 10.6 FL (7.4-10.4); MONOCYTES # (AUTO) 0.8 X10'3 (0-0.9); MONOCYTES % (AUTO) 3.6 % (2-12); NEUTROPHILS # (AUTO) 21.6 X10'3 (1.8-7.7); NEUTROPHILS % (AUTO) 92.5 % (42-75); PLATELET COUNT 74 X10'3 (140-440); RED CELL DISTRIBUTION WIDTH 16.5 % (11.5-14.5); WHITE BLOOD COUNT 23.3 X10'3 (4.5-11.0)
[2018-04-19 02:40] LABS: INR 1.1 INR; PARTIAL THROMBOPLASTIN TIME 41 SECONDS (22-32); PROTHROMBIN TIME 11.3 SECONDS (9.0-12.0)
[2018-04-19] MEDS: piperacillin/tazobactam inj. 2.25 GM in normal saline 50ml IV IV SCH ×4 (02:42→20:51)
[2018-04-19 02:47] LABS: ALANINE AMINOTRANSFERASE 34 U/L (12-78); ALBUMIN 1.5 G/DL (3.4-5.0); ALBUMIN/GLOBULIN RATIO 0.5 (1.1-1.5); ALKALINE PHOSPHATASE 253 IU/L (46-116); ANION GAP 14 (8-16); ASPARTATE AMINO TRANSFERASE 30 U/L (10-37); BILIRUBIN,TOTAL 1.1 MG/DL (0.1-1.0); BLOOD UREA NITROGEN 38 MG/DL (7-18); CALCIUM 7.7 MG/DL (8.5-10.1); CHLORIDE 103 MMOL/L (99-107); CREATININE 2.11 MG/DL (0.40-0.90); GLUCOSE 121 MG/DL (70-104); MAGNESIUM 2.1 MG/DL (1.5-2.4); PHOSPHORUS 5.7 MG/DL (2.3-4.5); POTASSIUM 3.9 MMOL/L (3.5-5.1); SODIUM 134 MMOL/L (135-145); TOTAL CARBON DIOXIDE 16.9 MMOL/L (24-32); TOTAL PROTEIN 4.8 G/DL (6.4-8.2); eGFR 22 ML/MIN
[2018-04-19 03:40] LABS: PLATELET ESTIMATE DECREASED; TOTAL CELLS COUNTED 100
[2018-04-19 03:41] LABS: ANISOCYTOSIS 1+; BANDS% (MANUAL) 1 % (0-10); BURR CELLS 2+; LARGE PLATELETS FEW; TOXIC GRANULATION 1+; TOXIC VACUOLATION 1+
[2018-04-19] MEDS: albuterol 2.5 MG/3 ML nebule NEB PRN ×2 (03:41→07:57)
[2018-04-19 04:16] LABS: ABG BASE EXCESS -11.5 mmol/L (-2.0-3.0); ABG HCO3 14.6 mmol/L (22.0-26.0); ABG OXYGEN SATURATION 96.1 % (95-98); ABG PCO2 (T) 33.9 mmHg (32.0-45.0); ABG PH (T) 7.253 (7.350-7.450); ABG PO2 (T) 85.7 mmHg (83-108); ALLEN'S TEST Positive; FCOHb 0.5 % (0.5-1.5); FLOW 3 L/min; FMetHb 0.3 % (0.3-1.12); FO2Hb 95.3 % (94-100); PATIENT TEMPERATURE 36.9; TOTAL HEMOGLOBIN 13.5 G/dl (12.0-16.0)
[2018-04-19] MEDS: pantoprazole 40MG/NS 100ML BAG 100 ML IV SCH (05:17)
[2018-04-19] MEDS: HYDROcodone/acetaminophen 10/325mg tab PO PRN (05:17)
[2018-04-19] MEDS: levoTHYROXINE 75mcg tablet PO SCH (07:32)
[2018-04-19] MEDS: spironolactone 50 MG tablet PO SCH (07:35)
[2018-04-19] MEDS: ferrous sulfate 325mg tablet PO SCH (07:35)
[2018-04-19] MEDS: citalopram 20mg tablet PO SCH (07:35)
[2018-04-19] MEDS: gabapentin 300mg capsule PO SCH (07:35)
[2018-04-19] MEDS: hydroxychloroquine 200mg tablet PO SCH (07:36)
[2018-04-19] MEDS: metolazone 2.5mg tablet PO SCH ×3 (10:37→20:50)
[2018-04-19] MEDS: furosemide 10 MG/1 ML 10ml inj IV SCH ×2 (10:38→15:32)
[2018-04-19] MEDS: amiodarone/D5 360MG/200ML BAG 200 ML IV SCH ×3 (12:07→18:11)
[2018-04-19] MEDS: albuterol 2.5 MG/3 ML nebule NEB SCH ×4 (12:16→23:54)
[2018-04-19] MEDS ORDERED: BARIUM SULFATE 340 ML SUSP.RECON***PROCEDURE AREA ONLY**DONT ENTER PO ONE (14:24)
[2018-04-19] MEDS ORDERED: SIMETHICONE/SOD BICARB/CIT AC PACKET PO ONE (14:34)
[2018-04-19] MEDS: potassium Cl 20 mEq SR tablet PO SCH ×2 (15:34→20:50)
[2018-04-19 18:50] LABS: TOTAL PROTEIN,URINE RANDOM 13.3 MG/DL
[2018-04-19] MEDS: diphenhydrAMINE 25mg capsule PO SCH (20:50)
[2018-04-19] MEDS: pantoprazole 40mg Tablet.DR PO SCH (20:50)
[2018-04-19] MEDS: vancomycin inj 1,250 MG in normal saline 250ml IV soln 250 ML IV SCH (20:51)
[2018-04-20] VITALS (24 sets, daily range): BP systolic 80–121; BP diastolic 46–71
[2018-04-20] MEDS: furosemide 10 MG/1 ML 10ml inj IV SCH ×2 (00:37→08:00)
[2018-04-20 03:00] LABS: BASOPHILS % (AUTO) 0 % (0-1); EOSINOPHILS # (AUTO) 0.2 X10'3 (0-0.9); HEMATOCRIT 35.1 % (35.0-45.0); HEMOGLOBIN 11.6 g/dl (12.0-16.0); LYMPHOCYTES # (AUTO) 0.7 X10'3 (1.1-4.8); LYMPHOCYTES % (AUTO) 4.4 % (21-51); MEAN CORPUSCULAR HEMOGLOBIN 29.3 PG (27.0-31.0); MEAN PLATELET VOLUME 10.5 FL (7.4-10.4); MONOCYTES # (AUTO) 1.1 X10'3 (0-0.9); MONOCYTES % (AUTO) 6.4 % (2-12); NEUTROPHILS # (AUTO) 14.8 X10'3 (1.8-7.7); NEUTROPHILS % (AUTO) 88.2 % (42-75); PLATELET COUNT 101 X10'3 (140-440); RED BLOOD COUNT 3.94 X10'6 (4.20-5.60); RED CELL DISTRIBUTION WIDTH 16.8 % (11.5-14.5); WHITE BLOOD COUNT 16.8 X10'3 (4.5-11.0)
[2018-04-20] MEDS: amiodarone/D5 360MG/200ML BAG 200 ML IV SCH (03:02)
[2018-04-20] MEDS: metolazone 2.5mg tablet PO SCH ×2 (03:08→10:06)
[2018-04-20] MEDS: piperacillin/tazobactam inj. 2.25 GM in normal saline 50ml IV IV SCH ×2 (03:08→08:35)
[2018-04-20 03:25] LABS: ALANINE AMINOTRANSFERASE 28 U/L (12-78); ALBUMIN 1.4 G/DL (3.4-5.0); ALBUMIN/GLOBULIN RATIO 0.5 (1.1-1.5); ALKALINE PHOSPHATASE 201 IU/L (46-116); ANION GAP 15 (8-16); ASPARTATE AMINO TRANSFERASE 19 U/L (10-37); BILIRUBIN,TOTAL 0.6 MG/DL (0.1-1.0); BLOOD UREA NITROGEN 48 MG/DL (7-18); BUN/CREATININE RATIO 21.4 (6.6-38.0); CHLORIDE 103 MMOL/L (99-107); CREATININE 2.24 MG/DL (0.40-0.90); GLUCOSE 167 MG/DL (70-104); MAGNESIUM 1.9 MG/DL (1.5-2.4); PHOSPHORUS 5.5 MG/DL (2.3-4.5); POTASSIUM 3.8 MMOL/L (3.5-5.1); SODIUM 136 MMOL/L (135-145); TOTAL CARBON DIOXIDE 18.2 MMOL/L (24-32); TOTAL PROTEIN 4.5 G/DL (6.4-8.2); eGFR 21 ML/MIN
[2018-04-20] MEDS: albuterol 2.5 MG/3 ML nebule NEB SCH ×6 (03:45→23:11)
[2018-04-20] MEDS ORDERED: amiodarone 200mg tablet PO ONE (09:50)
[2018-04-20] MEDS: hydroxychloroquine 200mg tablet PO SCH (10:00)
[2018-04-20] MEDS: levoTHYROXINE 75mcg tablet PO SCH (10:05)
[2018-04-20] MEDS: citalopram 20mg tablet PO SCH (10:06)
[2018-04-20] MEDS: pantoprazole 40mg Tablet.DR PO SCH ×2 (10:06→19:56)
[2018-04-20] MEDS: gabapentin 300mg capsule PO SCH (10:06)
[2018-04-20 10:28] LABS: ALANINE AMINOTRANSFERASE 28 U/L (12-78); ALBUMIN 1.4 G/DL (3.4-5.0); ALBUMIN/GLOBULIN RATIO 0.4 (1.1-1.5); ALKALINE PHOSPHATASE 194 IU/L (46-116); ASPARTATE AMINO TRANSFERASE 18 U/L (10-37); BILIRUBIN,DIRECT 0.4 MG/DL (0-0.3); BILIRUBIN,TOTAL 0.6 MG/DL (0.1-1.0); TOTAL PROTEIN 4.6 G/DL (6.4-8.2)
[2018-04-20] MEDS: ferrous sulfate 325mg tablet PO SCH (11:06)
[2018-04-20] MEDS: potassium Cl 20 mEq SR tablet PO SCH ×3 (11:06→21:00)
[2018-04-20] MEDS: ceFAZolin 1GM/D5W- ADD-VANTAGE 50 ML IV SCH (17:39)
[2018-04-20] MEDS: HYDROcodone/acetaminophen 10/325mg tab PO PRN (18:03)
[2018-04-20] MEDS: amiodarone 200mg tablet PO SCH (19:56)
[2018-04-20] MEDS: diphenhydrAMINE 25mg capsule PO SCH (22:36)
[2018-04-21] VITALS (24 sets, daily range): BP systolic 85–131; BP diastolic 43–62
[2018-04-21] MEDS: HYDROcodone/acetaminophen 10/325mg tab PO PRN ×5 (01:47→21:10)
[2018-04-21] MEDS: albuterol 2.5 MG/3 ML nebule NEB SCH ×6 (03:08→23:19)
[2018-04-21 03:38] LABS: ALANINE AMINOTRANSFERASE 28 U/L (12-78); ALBUMIN 1.5 G/DL (3.4-5.0); ALBUMIN/GLOBULIN RATIO 0.5 (1.1-1.5); ALKALINE PHOSPHATASE 214 IU/L (46-116); ANION GAP 11 (8-16); ASPARTATE AMINO TRANSFERASE 22 U/L (10-37); BILIRUBIN,TOTAL 0.6 MG/DL (0.1-1.0); BLOOD UREA NITROGEN 54 MG/DL (7-18); BUN/CREATININE RATIO 22.6 (6.6-38.0); CALCIUM 8.4 MG/DL (8.5-10.1); CHLORIDE 101 MMOL/L (99-107); CREATININE 2.39 MG/DL (0.40-0.90); GLUCOSE 111 MG/DL (70-104); MAGNESIUM 1.6 MG/DL (1.5-2.4); POTASSIUM 3.4 MMOL/L (3.5-5.1); SODIUM 135 MMOL/L (135-145); TOTAL CARBON DIOXIDE 22.9 MMOL/L (24-32); TOTAL PROTEIN 4.6 G/DL (6.4-8.2); eGFR 19 ML/MIN
[2018-04-21] MEDS ORDERED: furosemide 40mg/4ml inj IV ONE (06:30)
[2018-04-21] MEDS: levoTHYROXINE 75mcg tablet PO SCH (07:44)
[2018-04-21] MEDS: ceFAZolin 1GM/D5W- ADD-VANTAGE 50 ML IV SCH (07:45)
[2018-04-21] MEDS: potassium Cl 20 mEq SR tablet PO SCH ×3 (07:45→20:59)
[2018-04-21] MEDS: amiodarone 200mg tablet PO SCH ×2 (07:45→20:57)
[2018-04-21] MEDS: gabapentin 300mg capsule PO SCH (07:45)
[2018-04-21] MEDS: ferrous sulfate 325mg tablet PO SCH (07:45)
[2018-04-21] MEDS: pantoprazole 40mg Tablet.DR PO SCH ×2 (07:45→20:58)
[2018-04-21] MEDS: citalopram 20mg tablet PO SCH (07:50)
[2018-04-21] MEDS: hydroxychloroquine 200mg tablet PO SCH (07:51)
[2018-04-21] MEDS: diphenhydrAMINE 25mg capsule PO SCH (20:58)
[2018-04-21] MEDS: lactobacillus rhamnosus 10,000 MMU CELLS/CAPSULE PO SCH (20:58)
[2018-04-22] VITALS (23 sets, daily range): BP systolic 90–191; BP diastolic 43–90
[2018-04-22] MEDS: HYDROcodone/acetaminophen 10/325mg tab PO PRN ×2 (01:17→17:51)
[2018-04-22 03:14] LABS: ANION GAP 7 (8-16); BLOOD UREA NITROGEN 50 MG/DL (7-18); BUN/CREATININE RATIO 25.6 (6.6-38.0); CALCIUM 8.1 MG/DL (8.5-10.1); CHLORIDE 102 MMOL/L (99-107); CREATININE 1.95 MG/DL (0.40-0.90); GLUCOSE 111 MG/DL (70-104); POTASSIUM 4.6 MMOL/L (3.5-5.1); SODIUM 134 MMOL/L (135-145); TOTAL CARBON DIOXIDE 24.7 MMOL/L (24-32); eGFR 25 ML/MIN
[2018-04-22 03:15] LABS: ALANINE AMINOTRANSFERASE 21 U/L (12-78); ALBUMIN 1.5 G/DL (3.4-5.0); ALBUMIN/GLOBULIN RATIO 0.5 (1.1-1.5); ALKALINE PHOSPHATASE 199 IU/L (46-116); ASPARTATE AMINO TRANSFERASE 19 U/L (10-37); BILIRUBIN,TOTAL 0.7 MG/DL (0.1-1.0); MAGNESIUM 1.4 MG/DL (1.5-2.4); PHOSPHORUS 4.3 MG/DL (2.3-4.5); TOTAL PROTEIN 4.7 G/DL (6.4-8.2)
[2018-04-22] MEDS: albuterol 2.5 MG/3 ML nebule NEB SCH ×6 (03:16→23:47)
[2018-04-22] MEDS: hydroxychloroquine 200mg tablet PO SCH (08:00)
[2018-04-22] MEDS: ceFAZolin 1GM/D5W- ADD-VANTAGE 50 ML IV SCH (08:03)
[2018-04-22] MEDS: pantoprazole 40mg Tablet.DR PO SCH ×2 (08:04→20:18)
[2018-04-22] MEDS: potassium Cl 20 mEq SR tablet PO SCH ×3 (08:04→20:15)
[2018-04-22] MEDS: levoTHYROXINE 75mcg tablet PO SCH (08:04)
[2018-04-22] MEDS: ferrous sulfate 325mg tablet PO SCH (08:04)
[2018-04-22] MEDS: gabapentin 300mg capsule PO SCH (08:04)
[2018-04-22] MEDS: amiodarone 200mg tablet PO SCH ×2 (08:04→20:18)
[2018-04-22] MEDS: lactobacillus rhamnosus 10,000 MMU CELLS/CAPSULE PO SCH ×2 (08:04→20:18)
[2018-04-22] MEDS: citalopram 20mg tablet PO SCH (08:07)
[2018-04-22] MEDS: furosemide 40mg tablet PO SCH (10:21)
[2018-04-22] MEDS: lisinopril 10 MG tablet PO SCH (10:53)
[2018-04-22] MEDS ORDERED: pantoprazole 40mg Tablet.DR PO SCH (20:00)
[2018-04-22] MEDS: diphenhydrAMINE 25mg capsule PO SCH (20:18)
[2018-04-23] VITALS (22 sets, daily range): BP systolic 81–128; BP diastolic 44–92
[2018-04-23 03:01] LABS: BASOPHILS % (AUTO) 0 % (0-1); EOSINOPHILS # (AUTO) 0.2 X10'3 (0-0.9); HEMATOCRIT 33.3 % (35.0-45.0); HEMOGLOBIN 11.1 g/dl (12.0-16.0); LYMPHOCYTES # (AUTO) 0.9 X10'3 (1.1-4.8); LYMPHOCYTES % (AUTO) 4.4 % (21-51); MEAN CORPUSCULAR HEMOGLOBIN 29.5 PG (27.0-31.0); MEAN CORPUSCULAR HGB CONC 33.3 % (33.0-36.5); MEAN CORPUSCULAR VOLUME 88.7 FL (78-98); MEAN PLATELET VOLUME 10.4 FL (7.4-10.4); MONOCYTES # (AUTO) 1.1 X10'3 (0-0.9); MONOCYTES % (AUTO) 5.6 % (2-12); NEUTROPHILS # (AUTO) 18.2 X10'3 (1.8-7.7); PLATELET COUNT 132 X10'3 (140-440); RED BLOOD COUNT 3.75 X10'6 (4.20-5.60); RED CELL DISTRIBUTION WIDTH 15.7 % (11.5-14.5); WHITE BLOOD COUNT 20.4 X10'3 (4.5-11.0)
[2018-04-23] MEDS: HYDROcodone/acetaminophen 10/325mg tab PO PRN ×3 (03:20→19:50)
[2018-04-23 03:23] LABS: ALANINE AMINOTRANSFERASE 17 U/L (12-78); ALBUMIN 1.4 G/DL (3.4-5.0); ALBUMIN/GLOBULIN RATIO 0.4 (1.1-1.5); ALKALINE PHOSPHATASE 172 IU/L (46-116); ANION GAP 10 (8-16); ASPARTATE AMINO TRANSFERASE 15 U/L (10-37); BILIRUBIN,TOTAL 0.9 MG/DL (0.1-1.0); BLOOD UREA NITROGEN 47 MG/DL (7-18); BUN/CREATININE RATIO 31.8 (6.6-38.0); CALCIUM 8.4 MG/DL (8.5-10.1); CHLORIDE 98 MMOL/L (99-107); CREATININE 1.48 MG/DL (0.40-0.90); GLUCOSE 98 MG/DL (70-104); MAGNESIUM 1.3 MG/DL (1.5-2.4); PHOSPHORUS 4.3 MG/DL (2.3-4.5); POTASSIUM 4.6 MMOL/L (3.5-5.1); SODIUM 131 MMOL/L (135-145); TOTAL CARBON DIOXIDE 23.5 MMOL/L (24-32); TOTAL PROTEIN 4.6 G/DL (6.4-8.2); eGFR 34 ML/MIN
[2018-04-23] MEDS: albuterol 2.5 MG/3 ML nebule NEB SCH ×6 (03:43→22:40)
[2018-04-23] MEDS: citalopram 20mg tablet PO SCH (08:02)
[2018-04-23] MEDS: lisinopril 10 MG tablet PO SCH (08:02)
[2018-04-23] MEDS: pantoprazole 40mg Tablet.DR PO SCH ×2 (08:02→19:49)
[2018-04-23] MEDS: lactobacillus rhamnosus 10,000 MMU CELLS/CAPSULE PO SCH ×2 (08:03→19:48)
[2018-04-23] MEDS: hydroxychloroquine 200mg tablet PO SCH (08:03)
[2018-04-23] MEDS: ferrous sulfate 325mg tablet PO SCH (08:03)
[2018-04-23] MEDS: gabapentin 300mg capsule PO SCH (08:03)
[2018-04-23] MEDS: amiodarone 200mg tablet PO SCH ×2 (08:04→19:49)
[2018-04-23] MEDS: levoTHYROXINE 75mcg tablet PO SCH (08:05)
[2018-04-23] MEDS: furosemide 40mg tablet PO SCH (08:05)
[2018-04-23] MEDS: potassium Cl 20 mEq SR tablet PO SCH ×3 (08:05→19:50)
[2018-04-23] MEDS: ceFAZolin 1GM/D5W- ADD-VANTAGE 50 ML IV SCH (08:06)
[2018-04-23] MEDS: magnesium Cl slow-release 64mg tablet PO PRN ×2 (12:58→16:54)
[2018-04-23] MEDS: diphenhydrAMINE 25mg capsule PO SCH (19:49)
[2018-04-24] VITALS (24 sets, daily range): BP systolic 81–132; BP diastolic 44–68
[2018-04-24 03:39] LABS: ALANINE AMINOTRANSFERASE 15 U/L (12-78); ALBUMIN 1.5 G/DL (3.4-5.0); ALBUMIN/GLOBULIN RATIO 0.4 (1.1-1.5); ALKALINE PHOSPHATASE 177 IU/L (46-116); ANION GAP 7 (8-16); ASPARTATE AMINO TRANSFERASE 16 U/L (10-37); BILIRUBIN,TOTAL 0.6 MG/DL (0.1-1.0); BLOOD UREA NITROGEN 53 MG/DL (7-18); BUN/CREATININE RATIO 34.6 (6.6-38.0); CALCIUM 8.3 MG/DL (8.5-10.1); CHLORIDE 99 MMOL/L (99-107); CREATININE 1.53 MG/DL (0.40-0.90); GLUCOSE 112 MG/DL (70-104); MAGNESIUM 1.4 MG/DL (1.5-2.4); PHOSPHORUS 4.8 MG/DL (2.3-4.5); SODIUM 128 MMOL/L (135-145); TOTAL CARBON DIOXIDE 22.2 MMOL/L (24-32); TOTAL PROTEIN 5.1 G/DL (6.4-8.2); eGFR 33 ML/MIN
[2018-04-24 03:40] LABS: POTASSIUM 6.8 MMOL/L (3.5-5.1)
[2018-04-24] MEDS: albuterol 2.5 MG/3 ML nebule NEB SCH ×6 (03:59→23:41)
[2018-04-24] MEDS ORDERED: dextrose 50%-water 50ml dispensing syringe IV ONE (04:25)
[2018-04-24] MEDS ORDERED: sodium polystyrene sulfonate 15gm/60ml oral suspension PO ONE (04:25)
[2018-04-24] MEDS ORDERED: calcium chloride 100 MG/1 ML inj IV ONE (04:25)
[2018-04-24] MEDS ORDERED: insulin regular, human 10 units/0.1 ml syringe IV ONE (04:25)
[2018-04-24] MEDS: potassium Cl 20 mEq SR tablet PO SCH (06:37)
[2018-04-24] MEDS: magnesium 4gm in 100ml NS 100 ML IV PRN (07:32)
[2018-04-24] MEDS: ceFAZolin 1GM/D5W- ADD-VANTAGE 50 ML IV SCH (07:32)
[2018-04-24] MEDS: levoTHYROXINE 75mcg tablet PO SCH (07:33)
[2018-04-24] MEDS: furosemide 40mg tablet PO SCH (07:34)
[2018-04-24] MEDS: gabapentin 300mg capsule PO SCH (07:34)
[2018-04-24] MEDS: amiodarone 200mg tablet PO SCH ×2 (07:34→19:28)
[2018-04-24] MEDS: HYDROcodone/acetaminophen 10/325mg tab PO PRN ×2 (07:34→18:12)
[2018-04-24] MEDS: lactobacillus rhamnosus 10,000 MMU CELLS/CAPSULE PO SCH ×2 (07:34→19:28)
[2018-04-24] MEDS: pantoprazole 40mg Tablet.DR PO SCH ×2 (07:34→19:28)
[2018-04-24] MEDS: ferrous sulfate 325mg tablet PO SCH (07:34)
[2018-04-24] MEDS: hydroxychloroquine 200mg tablet PO SCH (07:35)
[2018-04-24] MEDS: citalopram 20mg tablet PO SCH (07:35)
[2018-04-24] MEDS: diphenhydrAMINE 25mg capsule PO SCH (21:11)
[2018-04-25] VITALS (9 sets, daily range): BP systolic 100–178; BP diastolic 44–62
[2018-04-25] MEDS: albuterol 2.5 MG/3 ML nebule NEB SCH ×3 (03:05→12:00)
[2018-04-25] MEDS: HYDROcodone/acetaminophen 10/325mg tab PO PRN ×3 (03:19→12:19)
[2018-04-25 03:23] LABS: BASOPHILS % (AUTO) 0 % (0-1); EOSINOPHILS # (AUTO) 0.4 X10'3 (0-0.9); EOSINOPHILS % (AUTO) 2.4 % (0-6); HEMATOCRIT 33.4 % (35.0-45.0); HEMOGLOBIN 11.1 g/dl (12.0-16.0); LYMPHOCYTES % (AUTO) 5.3 % (21-51); MEAN CORPUSCULAR HEMOGLOBIN 29.2 PG (27.0-31.0); MEAN CORPUSCULAR HGB CONC 33.1 % (33.0-36.5); MEAN CORPUSCULAR VOLUME 88.2 FL (78-98); MEAN PLATELET VOLUME 10.1 FL (7.4-10.4); MONOCYTES # (AUTO) 0.9 X10'3 (0-0.9); NEUTROPHILS % (AUTO) 87.3 % (42-75); PLATELET COUNT 167 X10'3 (140-440); RED BLOOD COUNT 3.79 X10'6 (4.20-5.60); RED CELL DISTRIBUTION WIDTH 15.6 % (11.5-14.5); WHITE BLOOD COUNT 18.3 X10'3 (4.5-11.0)
[2018-04-25 03:24] LABS: ALANINE AMINOTRANSFERASE 13 U/L (12-78); ALBUMIN 1.5 G/DL (3.4-5.0); ALBUMIN/GLOBULIN RATIO 0.4 (1.1-1.5); ALKALINE PHOSPHATASE 155 IU/L (46-116); ANION GAP 8 (8-16); ASPARTATE AMINO TRANSFERASE 18 U/L (10-37); BILIRUBIN,TOTAL 0.6 MG/DL (0.1-1.0); BLOOD UREA NITROGEN 54 MG/DL (7-18); BUN/CREATININE RATIO 37.2 (6.6-38.0); CALCIUM 8.5 MG/DL (8.5-10.1); CHLORIDE 99 MMOL/L (99-107); CREATININE 1.45 MG/DL (0.40-0.90); GLUCOSE 107 MG/DL (70-104); MAGNESIUM 1.6 MG/DL (1.5-2.4); PHOSPHORUS 5.6 MG/DL (2.3-4.5); POTASSIUM 4.7 MMOL/L (3.5-5.1); SODIUM 130 MMOL/L (135-145); TOTAL CARBON DIOXIDE 23.3 MMOL/L (24-32); eGFR 35 ML/MIN
[2018-04-25] MEDS: amiodarone 200mg tablet PO SCH (07:18)
[2018-04-25] MEDS: gabapentin 300mg capsule PO SCH (07:18)
[2018-04-25] MEDS: ferrous sulfate 325mg tablet PO SCH (07:18)
[2018-04-25] MEDS: levoTHYROXINE 75mcg tablet PO SCH (07:18)
[2018-04-25] MEDS: pantoprazole 40mg Tablet.DR PO SCH (07:18)
[2018-04-25] MEDS: ceFAZolin 1GM/D5W- ADD-VANTAGE 50 ML IV SCH (07:19)
[2018-04-25] MEDS: furosemide 40mg tablet PO SCH (07:19)
[2018-04-25] MEDS: lactobacillus rhamnosus 10,000 MMU CELLS/CAPSULE PO SCH (07:19)
[2018-04-25 07:22] LABS: ANISOCYTOSIS 1+; PLATELET ESTIMATE NORMAL; TOTAL CELLS COUNTED 100
[2018-04-25] MEDS: citalopram 20mg tablet PO SCH (08:22)
[2018-04-25] MEDS: hydroxychloroquine 200mg tablet PO SCH (08:22)
[2018-04-25] MEDS ORDERED: AMIO200T40 PO (12:11)
== END 2018-04-25 16:05 | disposition home or self-care (01) | DRG 871 ==
LOC: ER 11:58 → ED HOLD 14:44 → EDBEDREQ 17:00 → SUR 3N 18:45 → ICU 2S 04-16 00:20 → PCU 3S 04-25 11:26
PROVIDERS: ADMIT Internal Medicine; ATTEND Internal Medicine Critical Care Medicine
PROC: 02HV33Z Insertion of Infusion Device into Superior Vena Cava, Percutaneous Approach (ICD-10-PCS; principal; 2018-04-18)
PROC: BD15YZZ Fluoroscopy of Upper GI using Other Contrast (ICD-10-PCS; 2018-04-19)
DX: A41.9 Sepsis, unspecified organism (principal); I50.31 Acute diastolic (congestive) heart failure; J96.00 Acute respiratory failure, unspecified whether with hypoxia or hypercapnia; K22.6 Gastro-esophageal laceration-hemorrhage syndrome; R65.21 Severe sepsis with septic shock; N17.9 Acute kidney failure, unspecified; I13.0 Hypertensive heart and chronic kidney disease with heart failure and stage 1 through stage 4 chronic kidney disease, or unspecified chronic kidney disease; E87.1 Hypo-osmolality and hyponatremia; E03.9 Hypothyroidism, unspecified; M19.90 Unspecified osteoarthritis, unspecified site; M54.9 Dorsalgia, unspecified; R00.1 Bradycardia, unspecified; R80.9 Proteinuria, unspecified; E87.5 Hyperkalemia; E88.09 Other disorders of plasma-protein metabolism, not elsewhere classified; I48.91 Unspecified atrial fibrillation; I34.0 Nonrheumatic mitral (valve) insufficiency; K21.0 Gastro-esophageal reflux disease with esophagitis; I25.10 Atherosclerotic heart disease of native coronary artery without angina pectoris; F32.9 Major depressive disorder, single episode, unspecified; K22.2 Esophageal obstruction; G89.29 Other chronic pain; K44.9 Diaphragmatic hernia without obstruction or gangrene; N18.3 Chronic kidney disease, stage 3 (moderate); Z95.0 Presence of cardiac pacemaker; Z90.49 Acquired absence of other specified parts of digestive tract; Z90.5 Acquired absence of kidney; Z90.710 Acquired absence of both cervix and uterus; Z91.040 Latex allergy status; Z88.5 Allergy status to narcotic agent; Z88.0 Allergy status to penicillin; Z88.8 Allergy status to other drugs, medicaments and biological substances; Z91.048 Other nonmedicinal substance allergy status; Z79.899 Other long term (current) drug therapy; Z79.82 Long term (current) use of aspirin; Z85.528 Personal history of other malignant neoplasm of kidney
CPT/HCPCS: 36415; 36600; 71045; 74176; 74241; 80048; 80053; 80076; 80202; 81001; 82271; 82310; 82570; 82803; 82810; 82948; 83605; 83735; 83880; 84100; 84132; 84133; 84145; 84156; 84166; 84300; 84439; 84443; 84480; 84484; 84540; 85018; 85025; 85610; 85730; 86870; 86880; 86885; 86900; 86901; 86902; 86905; 87040; 87070; 87077; 87088; 87186; 93005; 93306; 93970; 94640; 94668; 94760; 96361; 96374; 96375; 97110; 97116; 97161; 97530; 99285; C9113; G0378; J0282; J0690; J0780; J1815; J1940; J2270; J2405; J2543; J2765; J2930; J3370; J3475; J3480; J7030; J7512; Q0163